=== PATIENT | male | born 1970 | race Caucasian/White ===

== ENCOUNTER 2021-04-01 13:43 | Day surgery (SDC) | payer OTHER ==
[2021-03-29 15:17] VITALS: BMI 24.5
[2021-04-01 16:18] VITALS: TEMP 98.2
[2021-04-01 16:20] VITALS: BP 128/74; PULSE 71
== END 2021-04-01 16:10 | disposition home or self-care (01) ==
LOC: FASU-ENDO 13:43
PROVIDERS: ATTEND Internal Medicine Gastroenterology
PROC: 0DBL8ZX Excision of Transverse Colon, Via Natural or Artificial Opening Endoscopic, Diagnostic (ICD-10-PCS; principal; 2021-04-01 15:00)
DX: Z12.11 Encounter for screening for malignant neoplasm of colon (principal); K62.1 Rectal polyp; K64.1 Second degree hemorrhoids
CPT/HCPCS: 88305-TC